=== PATIENT | male | born 2000 | race African-American/Black ===

== ENCOUNTER 2025-04-30 21:42 | Emergency (ER) | payer SELFPAY ==
[~2025-04-30] VITALS: Ht 180.3 cm; Wt 159.0 kg
[2025-04-30 21:43] VITALS: O2SAT 98
[2025-04-30 21:53] VITALS: BP 136/84; PULSE 86; RESP 18; TEMP 36.7; O2SAT 99
[2025-04-30] MEDS ORDERED: IBUP-1455 MT (23:28)
[2025-04-30] MEDS ORDERED: OFLO5DRO4 LEFT EAR (23:28)
== END 2025-04-30 23:55 | disposition home or self-care (01) ==
LOC: ER 21:42
DX: H60.92 Unspecified otitis externa, left ear (principal); Z79.899 Other long term (current) drug therapy
CPT/HCPCS: 99283

== ENCOUNTER 2025-06-13 23:54 | Emergency (ER) | payer SELFPAY ==
[~2025-06-13] VITALS: Ht 180.3 cm; Wt 159.0 kg
[~2025-06-13 23:54] MED LIST: IBUP-1455 MT; OFLO5DRO4 LEFT EAR
[2025-06-14 00:24] VITALS: TEMP 37.5; O2SAT 98
[2025-06-14] MEDS ORDERED: OFLO5DRO4 LEFT EAR (00:41)
[2025-06-14] MEDS ORDERED: CIPR-263 MT (00:41)
[2025-06-14] MEDS ORDERED: IBUP-2030 MT (00:42)
[2025-06-14 01:07] VITALS: BP 138/75; PULSE 75; RESP 19; O2SAT 98
[2025-06-17] MEDS ORDERED: CIPR250T4 MT (03:50)
== END 2025-06-14 01:09 | disposition home or self-care (01) ==
LOC: ER 23:54
DX: H60.92 Unspecified otitis externa, left ear (principal)
CPT/HCPCS: 99283